=== PATIENT | male | born 1985 | race Caucasian/White ===

== ENCOUNTER → 2017-03-15 | Outpatient (CLI) | payer BC ==
[2017-03-15 09:48] LABS: ADD MAN DIFF? NO
[2017-03-15 09:52] LABS: BASOPHILS % 0.5 % (0.0-2.0); EOSINOPHILS # 0.2 10^3/ul (0.0-0.5); EOSINOPHILS % 3.4 % (0.0-7.0); HEMATOCRIT 48.7 % (42.0-52.0); HEMOGLOBIN 16.6 g/dl (14.0-18.0); LYMPHOCYTES # 2.2 10^3/ul (0.8-2.9); LYMPHOCYTES % 37.2 % (15.0-51.0); MEAN CORPUSCULAR HEMOGLOBIN 30.5 pg (29.0-33.0); MEAN CORPUSCULAR HGB CONC 34.1 g/dl (32.0-37.0); MEAN CORPUSCULAR VOLUME 89.5 fl (82.0-101.0); MEAN PLATELET VOLUME 10.3 fl (7.4-10.4); MONOCYTE # 0.5 10^3/ul (0.3-0.9); MONOCYTES % 7.8 % (0.0-11.0); NEUTROPHILS % 50.6 % (39.0-77.0); PLATELET COUNT 240 10^3/UL (140-415); RED BLOOD COUNT 5.44 10^6/ul (4.70-6.10); RED CELL DISTRIBUTION WIDTH 12.8 % (11.5-14.5)
[2017-03-15 09:52] LABS: WHITE BLOOD COUNT 5.9 10^3/ul (4.8-10.8)
[2017-03-15 10:15] LABS: ALANINE AMINOTRANSFERASE 41 IU/L (13-69); ALBUMIN 4.2 g/dl (3.3-4.9); ALBUMIN/GLOBULIN RATIO 1.27; ALKALINE PHOSPHATASE 73 IU/L (42-121); ANION GAP 14 (8-16); ASPARTATE AMINO TRANSFERASE 26 IU/L (15-46); BILIRUBIN,INDIRECT 0.6 mg/dl (0-1.1); BILIRUBIN,TOTAL 0.6 mg/dl (0.2-1.3); BLOOD UREA NITROGEN 10 mg/dl (7-20); CALCIUM 9.7 mg/dl (8.4-10.2); CARBON DIOXIDE 26 mmol/L (21-31); CHLORIDE 107 mmol/L (97-110); CHOL/HDL RATIO 7.9 RATIO; CHOLESTEROL 237 mg/dl (100-200); CREATININE 0.83 mg/dl (0.61-1.24); GLUCOSE 104 mg/dl (70-220); HDL CHOLESTEROL 30 mg/dl (28-63); LDL CHOLESTEROL,CALCULATED 163 mg/dl; POTASSIUM 4.3 mmol/L (3.5-5.1); SODIUM 143 mmol/L (135-144); TOTAL PROTEIN 7.5 g/dl (6.1-8.1); TRIGLYCERIDES 219 mg/dl (0-149)
[2017-03-15 10:21] LABS: ADD UMIC NO; UR ASCORBIC ACID NEGATIVE (NEGATIVE); UR BILIRUBIN (Dip) NEGATIVE (NEGATIVE); UR BLOOD (Dip) NEGATIVE (NEGATIVE); UR CLARITY CLEAR (CLEAR); UR COLOR YELLOW (YELLOW); UR GLUCOSE (Dip) NEGATIVE (NEGATIVE); UR KETONES (Dip) NEGATIVE (NEGATIVE); UR LEUKOCYTE ESTERASE (Dip) NEGATIVE Leu/ul (NEGATIVE); UR NITRITE (Dip) NEGATIVE (NEGATIVE); UR SPECIFIC GRAVITY (Dip) 1.017 (1.003-1.030); UR TOTAL PROTEIN (Dip) NEGATIVE (NEGATIVE); UR UROBILINOGEN (Dip) NEGATIVE (NEGATIVE)
[2017-03-15 10:57] LABS: HEMOGLOBIN A1C 5.6 % (0-5.9)
== END | disposition home or self-care (01) ==
LOC: LAB 09:25
DX: R73.03 Prediabetes (principal)
CPT/HCPCS: 80053; 80061; 81003; 83036; 85025

== ENCOUNTER 2017-05-23 18:47 | Emergency (ER) | payer BC ==
[2017-05-23] MEDS: morphine 4 MG/ML VIAL IV ×2 (21:35→23:36)
[2017-05-23] MEDS: KETOROLAC 30 MG INJ IV (21:35)
[2017-05-23 21:42] LABS: URINE BLOOD (Dip) POC Negative (NEGATIVE); URINE GLUCOSE (Dip) POC Negative (NEGATIVE); URINE KETONES (Dip) POC Negative (NEGATIVE); URINE LEUKOCYTE EST (Dip) POC Negative (NEGATIVE); URINE NITRITE (Dip) POC Negative (NEGATIVE); URINE TOTAL PROTEIN POC Negative (NEGATIVE)
[2017-05-23 22:38] LABS: URINE BLOOD (Dip) POC Negative (NEGATIVE); URINE GLUCOSE (Dip) POC Negative (NEGATIVE); URINE KETONES (Dip) POC Negative (NEGATIVE); URINE LEUKOCYTE EST (Dip) POC Negative (NEGATIVE); URINE NITRITE (Dip) POC Negative (NEGATIVE); URINE TOTAL PROTEIN POC Negative (NEGATIVE)
== END 2017-05-24 00:05 | disposition home or self-care (01) ==
LOC: FTE 05-24 00:05
DX: S39.92XA Unspecified injury of lower back, initial encounter (principal); F17.210 Nicotine dependence, cigarettes, uncomplicated; W17.89XA Other fall from one level to another, initial encounter; Y92.9 Unspecified place or not applicable
CPT/HCPCS: 72131; 72192; 81003; 96374; 96375; 96376; 99285-25

== ENCOUNTER → 2017-06-11 | Outpatient (CLI) | payer BC | END | disposition home or self-care (01) | LOC: LAB 08:00 | DX: Z01.818 Encounter for other preprocedural examination (principal); J20.9 Acute bronchitis, unspecified; R07.89 Other chest pain | CPT/HCPCS: 71046; 80053; 85025; 85610; 85651; 85730; 86140; 93005 ==

== ENCOUNTER 2017-06-25 05:41 | Day surgery (SDC) | payer BC ==
[2017-06-11 13:17] LABS: ADD MAN DIFF? NO
[2017-06-11 13:22] LABS: BASOPHILS % 0.5 % (0.0-2.0); EOSINOPHILS # 0.4 10^3/ul (0.0-0.5); EOSINOPHILS % 4.3 % (0.0-7.0); HEMATOCRIT 47.8 % (42.0-52.0); HEMOGLOBIN 16.2 g/dl (14.0-18.0); LYMPHOCYTES # 2.9 10^3/ul (0.8-2.9); LYMPHOCYTES % 35.9 % (15.0-51.0); MEAN CORPUSCULAR HEMOGLOBIN 30.4 pg (29.0-33.0); MEAN CORPUSCULAR HGB CONC 33.9 g/dl (32.0-37.0); MEAN CORPUSCULAR VOLUME 89.7 fl (82.0-101.0); MEAN PLATELET VOLUME 10.4 fl (7.4-10.4); MONOCYTE # 0.8 10^3/ul (0.3-0.9); MONOCYTES % 9.5 % (0.0-11.0); NEUTROPHILS % 49.3 % (39.0-77.0); PLATELET COUNT 269 10^3/UL (140-415); RED BLOOD COUNT 5.33 10^6/ul (4.70-6.10)
[2017-06-11 13:22] LABS: WHITE BLOOD COUNT 8.1 10^3/ul (4.8-10.8)
[2017-06-11 13:41] LABS: ALANINE AMINOTRANSFERASE 42 IU/L (13-69); ALBUMIN 4.5 g/dl (3.3-4.9); ALKALINE PHOSPHATASE 70 IU/L (42-121); ANION GAP 13 (8-16); ASPARTATE AMINO TRANSFERASE 29 IU/L (15-46); BILIRUBIN,INDIRECT 0.2 mg/dl (0-1.1); BILIRUBIN,TOTAL 0.2 mg/dl (0.2-1.3); CARBON DIOXIDE 30 mmol/L (21-31); CHLORIDE 105 mmol/L (97-110); GLUCOSE 92 mg/dl (70-220); INR 0.93; PROTIME 12.5 Sec (11.9-14.9); TOTAL PROTEIN 7.5 g/dl (6.1-8.1)
[2017-06-11 13:42] LABS: BLOOD UREA NITROGEN 14 mg/dl (7-20); C-REACTIVE PROTEIN < 0.5 mg/dl (0.0-0.9); CALCIUM 9.5 mg/dl (8.4-10.2); CREATININE 0.87 mg/dl (0.61-1.24); PARTIAL THROMBOPLASTIN TIME 27.7 Sec (25.0-35.0); POTASSIUM 4.2 mmol/L (3.5-5.1); SODIUM 144 mmol/L (135-144)
[2017-06-11 14:30] LABS: ERYTHROCYTE SEDIMENTATION RATE 2 mm/Hr (0-15)
[~2017-06-25 05:41] MED LIST: CEFAZOLIN 2 GM/50 ML (PMX) 50 ML IVPB
[2017-06-25] MEDS ORDERED: GLYCOPYRROLATE 0.4 MG INJ (06:20)
[2017-06-25] MEDS ORDERED: ROCURONIUM 50 MG INJ (06:20)
[2017-06-25] MEDS ORDERED: LIDOCAINE 2% (SDV) 5 ML INJ (06:20)
[2017-06-25] MEDS ORDERED: PROPOFOL 20 ML (06:20)
[2017-06-25] MEDS ORDERED: NEOSTIGMINE 3 MG/3 ML SYRINGE (06:20)
[2017-06-25] MEDS ORDERED: FENTAnyl 50 MCG/ML VIAL (06:20)
[2017-06-25] MEDS ORDERED: MIDAZOLAM 1 MG/ML 2 ML INJ (06:20)
[2017-06-25] MEDS ORDERED: DEXAMETHASONE 4 MG/ML 1 ML INJ (06:21)
[2017-06-25] MEDS ORDERED: ONDANSETRON 4 MG INJ (06:21)
[2017-06-25] MEDS ORDERED: EPHEDrine SULFATE 50 MG/5 ML SYG IV (06:30)
[2017-06-25] MEDS ORDERED: MEPERIDINE 25 MG INJ IV (06:30)
[2017-06-25] MEDS ORDERED: FENTAnyl 50 MCG/ML VIAL IV ×2 (06:30)
[2017-06-25] MEDS ORDERED: HYDROmorphONE (0.2 MG/ML) 10ML SYG IV ×2 (06:30)
[2017-06-25] MEDS ORDERED: DIPHENHYDRAMINE 50 MG INJ IV (06:30)
[2017-06-25] MEDS ORDERED: MIDAZOLAM 1 MG/ML 2 ML INJ IV (06:30)
[2017-06-25] MEDS ORDERED: LABETALOL HCL 20MG INJ IV (06:30)
[2017-06-25] MEDS ORDERED: hydrALAzine 20 MG INJ IV (06:30)
[2017-06-25] MEDS ORDERED: morphine (1 MG/ML) 10ML SYRINGE IV ×3 (06:30)
[2017-06-25] MEDS ORDERED: ATROPINE 1 MG/10 ML SYRINGE IV (06:30)
[2017-06-25] MEDS ORDERED: OXYCODONE/ACETAMINOPHEN (5/325) TAB PO ×2 (06:30)
[2017-06-25] MEDS: ROPIVACAINE 0.5 % 30 ML VIAL ×2 (06:56→09:45)
[2017-06-25] MEDS ORDERED: SUCCINYLCHOLINE CHLORIDE 100 MG/5 ML SYG IV (06:58)
[2017-06-25] MEDS ORDERED: CEFAZOLIN 1 GM INJ (07:00)
[2017-06-25] MEDS: VANCOMYCIN 1 GM INJ (08:15)
[2017-06-25] MEDS: POLYMYXIN/BACITRACIN 1L IRRIG (08:17)
[2017-06-25] MEDS: HYDROmorphONE (0.2 MG/ML) 10ML SYG IV ×2 (10:10→10:29)
[2017-06-25] MEDS: ONDANSETRON 4 MG INJ IV (10:10)
== END 2017-06-25 12:30 | disposition home or self-care (01) ==
LOC: SDS 05:41
DX: S83.511D Sprain of anterior cruciate ligament of right knee, subsequent encounter (principal); X58.XXXD Exposure to other specified factors, subsequent encounter; M23.200 Derangement of unspecified lateral meniscus due to old tear or injury, right knee; M23.203 Derangement of unspecified medial meniscus due to old tear or injury, right knee; M94.261 Chondromalacia, right knee; M65.861 Other synovitis and tenosynovitis, right lower leg
CPT/HCPCS: 29880; 71046; 80053; 85025; 85610; 85651; 85730; 86140; 93005

== ENCOUNTER → 2017-09-02 | Outpatient (CLI) | payer BC ==
[2017-09-02 08:41] LABS: ADD MAN DIFF? NO
[2017-09-02 09:10] LABS: WHITE BLOOD COUNT 6.9 10^3/ul (4.8-10.8)
[2017-09-02 09:10] LABS: BASOPHILS % 0.4 % (0.0-2.0); EOSINOPHILS # 0.3 10^3/ul (0.0-0.5); EOSINOPHILS % 4.5 % (0.0-7.0); HEMATOCRIT 44.6 % (42.0-52.0); HEMOGLOBIN 14.8 g/dl (14.0-18.0); LYMPHOCYTES # 2.5 10^3/ul (0.8-2.9); LYMPHOCYTES % 36.7 % (15.0-51.0); MEAN CORPUSCULAR HEMOGLOBIN 30.2 pg (29.0-33.0); MEAN CORPUSCULAR HGB CONC 33.2 g/dl (32.0-37.0); MEAN PLATELET VOLUME 10.7 fl (7.4-10.4); MONOCYTE # 0.6 10^3/ul (0.3-0.9); MONOCYTES % 8.7 % (0.0-11.0); NEUTROPHIL # 3.4 10^3/ul (1.6-7.5); NEUTROPHILS % 49.3 % (39.0-77.0); PLATELET COUNT 251 10^3/UL (140-415); RED CELL DISTRIBUTION WIDTH 12.9 % (11.5-14.5)
[2017-09-02 09:32] LABS: ANION GAP 14 (8-16); BLOOD UREA NITROGEN 12 mg/dl (7-20); CALCIUM 9.2 mg/dl (8.4-10.2); CARBON DIOXIDE 24 mmol/L (21-31); CHLORIDE 110 mmol/L (97-110); CHOL/HDL RATIO 6.7 RATIO; CHOLESTEROL 208 mg/dl (100-200); GLUCOSE 93 mg/dl (70-220); HDL CHOLESTEROL 31 mg/dl (28-63); LDL CHOLESTEROL,CALCULATED 127 mg/dl; SODIUM 144 mmol/L (135-144); TRIGLYCERIDES 252 mg/dl (0-149)
[2017-09-02 12:30] LABS: HEMOGLOBIN A1C 5.8 % (0-5.9)
== END | disposition home or self-care (01) ==
LOC: LAB 08:13
DX: R73.03 Prediabetes (principal); E78.5 Hyperlipidemia, unspecified
CPT/HCPCS: 80048; 80061; 83036; 85025

== ENCOUNTER → 2017-11-22 | Outpatient (CLI) | payer BC | END | disposition home or self-care (01) | LOC: RAD 11:28 | DX: M25.521 Pain in right elbow (principal) | CPT/HCPCS: 73080; 73080-RT ==

== ENCOUNTER → 2017-12-15 | Outpatient (CLI) | payer BC ==
[2017-12-15 13:57] LABS: ADD MAN DIFF? NO
[2017-12-15 13:59] LABS: BASOPHILS % 0.4 % (0.0-2.0); EOSINOPHILS # 0.3 10^3/ul (0.0-0.5); HEMATOCRIT 50.3 % (42.0-52.0); LYMPHOCYTES # 2.4 10^3/ul (0.8-2.9); LYMPHOCYTES % 33.7 % (15.0-51.0); MEAN CORPUSCULAR HEMOGLOBIN 30.7 pg (29.0-33.0); MEAN CORPUSCULAR HGB CONC 33.8 g/dl (32.0-37.0); MEAN PLATELET VOLUME 10.6 fl (7.4-10.4); MONOCYTE # 0.7 10^3/ul (0.3-0.9); MONOCYTES % 9.7 % (0.0-11.0); NEUTROPHIL # 3.8 10^3/ul (1.6-7.5); NEUTROPHILS % 51.9 % (39.0-77.0); PLATELET COUNT 259 10^3/UL (140-415); RED BLOOD COUNT 5.53 10^6/ul (4.70-6.10); RED CELL DISTRIBUTION WIDTH 12.8 % (11.5-14.5)
[2017-12-15 13:59] LABS: WHITE BLOOD COUNT 7.2 10^3/ul (4.8-10.8)
[2017-12-15 14:02] LABS: ADD UMIC NO; UR ASCORBIC ACID 20 mg/dL (NEGATIVE); UR BILIRUBIN (Dip) NEGATIVE (NEGATIVE); UR BLOOD (Dip) NEGATIVE (NEGATIVE); UR CLARITY CLEAR (CLEAR); UR COLOR YELLOW (YELLOW); UR GLUCOSE (Dip) NEGATIVE (NEGATIVE); UR KETONES (Dip) NEGATIVE (NEGATIVE); UR LEUKOCYTE ESTERASE (Dip) NEGATIVE Leu/ul (NEGATIVE); UR NITRITE (Dip) NEGATIVE (NEGATIVE); UR SPECIFIC GRAVITY (Dip) 1.019 (1.003-1.030); UR TOTAL PROTEIN (Dip) NEGATIVE (NEGATIVE); UR UROBILINOGEN (Dip) NEGATIVE (NEGATIVE)
[2017-12-15 14:17] LABS: INR 0.87; PROTIME 11.9 Sec (11.9-14.9); PT RATIO 0.9
[2017-12-15 14:18] LABS: PARTIAL THROMBOPLASTIN TIME 25.2 Sec (25.0-35.0)
[2017-12-15 14:22] LABS: ALANINE AMINOTRANSFERASE 29 IU/L (13-69); ALBUMIN 4.4 g/dl (3.3-4.9); ALBUMIN/GLOBULIN RATIO 1.29; ALKALINE PHOSPHATASE 78 IU/L (42-121); ANION GAP 16 (8-16); ASPARTATE AMINO TRANSFERASE 35 IU/L (15-46); BILIRUBIN,INDIRECT 0.3 mg/dl (0-1.1); BILIRUBIN,TOTAL 0.3 mg/dl (0.2-1.3); BLOOD UREA NITROGEN 13 mg/dl (7-20); CALCIUM 9.6 mg/dl (8.4-10.2); CARBON DIOXIDE 22 mmol/L (21-31); CHLORIDE 108 mmol/L (97-110); GLUCOSE 108 mg/dl (70-220); POTASSIUM 4.2 mmol/L (3.5-5.1); SODIUM 142 mmol/L (135-144); TOTAL PROTEIN 7.8 g/dl (6.1-8.1)
== END | disposition home or self-care (01) ==
LOC: LAB 13:34
DX: Z01.818 Encounter for other preprocedural examination (principal); M17.11 Unilateral primary osteoarthritis, right knee
CPT/HCPCS: 80053; 81003; 85025; 85610; 85730

== ENCOUNTER 2017-12-24 05:55 | Day surgery (SDC) | payer BC ==
[2017-12-24] MEDS ORDERED: CEFAZOLIN 2 GM/50 ML (PMX) 50 ML IVPB (07:00)
[2017-12-24] MEDS ORDERED: GLYCOPYRROLATE 0.4 MG INJ (07:00)
[2017-12-24] MEDS: LACTATED RINGER'S 1,000 ML IV ×2 (07:04)
[2017-12-24] MEDS ORDERED: LIDOCAINE 2% (SDV) 5 ML INJ (07:18)
[2017-12-24] MEDS ORDERED: DEXAMETHASONE 4 MG/ML 1 ML INJ (07:18)
[2017-12-24] MEDS ORDERED: MIDAZOLAM 1 MG/ML 2 ML INJ (07:18)
[2017-12-24] MEDS ORDERED: ACETAMINOPHEN 1000MG/100ML IV 100 ML (07:18)
[2017-12-24] MEDS ORDERED: ONDANSETRON 4 MG INJ (07:18)
[2017-12-24] MEDS ORDERED: PROPOFOL 20 ML ×2 (07:18→07:57)
[2017-12-24] MEDS ORDERED: CEFAZOLIN 1 GM INJ (07:38)
[2017-12-24] MEDS ORDERED: METOCLOPRAMIDE 10 MG INJ (07:38)
[2017-12-24] MEDS: LIDOCAINE 1% (MPF) 30 ML INJ (08:19)
[2017-12-24] MEDS: ROPIVACAINE 0.5 % 30 ML VIAL (08:20)
[2017-12-24] MEDS ORDERED: KETOROLAC 30 MG INJ (08:24)
[2017-12-24] MEDS ORDERED: HYDROmorphONE 1 MG/5 ML IV SYRINGE IV (08:30)
[2017-12-24] MEDS ORDERED: MEPERIDINE 25 MG INJ IV (08:30)
[2017-12-24] MEDS ORDERED: FENTAnyl 50 MCG/ML VIAL IV ×2 (08:30)
[2017-12-24] MEDS ORDERED: ONDANSETRON 4 MG INJ IV (08:30)
[2017-12-24] MEDS ORDERED: MIDAZOLAM 1 MG/ML 2 ML INJ IV (08:30)
[2017-12-24] MEDS: HYDROmorphONE 1 MG/5 ML IV SYRINGE IV ×2 (09:23→09:28)
== END 2017-12-24 10:50 | disposition home or self-care (01) ==
LOC: SDS 05:55
DX: M23.200 Derangement of unspecified lateral meniscus due to old tear or injury, right knee (principal); M23.203 Derangement of unspecified medial meniscus due to old tear or injury, right knee; M94.261 Chondromalacia, right knee; M65.861 Other synovitis and tenosynovitis, right lower leg; F17.200 Nicotine dependence, unspecified, uncomplicated
CPT/HCPCS: 29880

== ENCOUNTER 2018-05-08 09:30 | Emergency (ER) | payer BC ==
[2018-05-08] MEDS: KETOROLAC 60 MG INJ IM (10:07)
[2018-05-08] MEDS: HYDROCODONE/APAP (10/325) TAB PO (10:55)
== END 2018-05-08 12:28 | disposition home or self-care (01) ==
LOC: FTE 09:30
DX: S39.92XA Unspecified injury of lower back, initial encounter (principal); X50.0XXA Overexertion from strenuous movement or load, initial encounter; Y92.89 Other specified places as the place of occurrence of the external cause; Z87.891 Personal history of nicotine dependence
CPT/HCPCS: 72100; 96372; 99284-25